=== PATIENT | female | born 1995 | race Caucasian/White ===

== ENCOUNTER 2017-01-04 17:02 | Emergency (ER) | payer SELFPAY ==
[2017-01-04] VITALS (11 sets, daily range): BP systolic 125; BP diastolic 71; PULSE 78–96; RESP 18
[~2017-01-04 17:02] MED LIST: OFLO.3%A LEFT EAR
--- NOTE | 2017-01-04 18:15 | PD ---
HPI Chief Complaint Patient wants information on care, she has no complaints Date Seen: January 04, 2017 Travel History International Travel<30 Days: No Contact w/Intl Traveler<30Days: No Known Affected Area: No History of Present Illness HPI Patient is 21-year-old white female at 27 weeks gestation presents with no complaints actually, she is wants information about try to get care and she like to know the sex of baby at a problem no pain bleeding or leakage of fluid, baby is very active, heart rate tracing is reactive for 27 weeks, patient she had ultrasound done recently the pelvis she was 27-1/2 weeks along. She had initially gone and the to have a termination of thinking she was in the first trimester [12] turns out she was 27 weeks by ultrasound patient admits to using cocaine marijuana on a regular basis she wanted to make sure the baby was ok since she uses so much cocaine and marijuana. Para: 0 : 2 History Obstetric History Obstetric History One in the past Social History Narrative Social History Admits to freely using cocaine and marijuana Alcohol Use: Yes Tobacco Use: Yes Substance Abuse: Yes Allergies-Medications (Allergen,Severity, Reaction): Coded Allergies: No Known Allergies (Verified , 10/20/14) Home Meds Active Scripts Ofloxacin (Floxin)0.3 % Soln5 Drop LEFT EAR BID 10 Days Prov:Bret Ortiz MD 10/20/14 Review of Systems General / Constitutional: No: Fever, Weight Gain, Chills, Other Eyes: No: Diploplia, Blurred Vision, Visual changes, Pain, Photophobia HENT: No: Headaches, Vertigo, Lightheadedness Cardiovascular: No: Irregular Rhythm, Chest Pain or Discomfort, Palpitations, Tachycardia, Syncope, Varicosities, Edema, Cyanosis Respiratory: No: Cough, Short of Breath, Other Gastrointestinal: No: Nausea, Vomiting, Diarrhea Genitourinary: No: Decreased Urinary Output, Oliguria Musculoskeletal: No: Limited ROM, Weakness, Cramping, Edema, Pain Skin: No Rash, No Itching, No Dryness, No Lumps, No Change in Pigmentation, No Change in Nails, No Alopecia, No Lesions Neurologic: No: Weakness, Dizziness, Syncope, Focal Abnormalities, Coordination Problem, Headache, Slurred Speech, Seizures Psychiatric: No: Depression, Suicidal Ideations, Homicidal Ideation Endocrine: No: Heat Intolerance, Cold Intolerance, Polydipsia, Polyuria, Other Physical Exam Narrative GENERAL: Well-nourished, well-developed patient. SKIN: Warm and dry. HEAD: Normocephalic and atraumatic. EYES: No scleral icterus. No injection or drainage. ENT: No nasal drainage noted. Mucous membranes pink. Airway patent. NECK: Supple, trachea midline. No JVD. CARDIOVASCULAR: Regular rate and rhythm without murmurs, gallops, or rubs. RESPIRATORY: Breath sounds equal bilaterally. No accessory muscle use. BREASTS: Bilateral exam showed no masses , no retractions, no nipple discharge. ABDOMEN/GI: Abdomen soft, non-tender, bowel sounds present, no rebound, no guarding Gravid to [-27] weeks size Fundal Height: [27-] GENITOURINARY: External Genitalia: intact and normal in appearance BUS glands: [-] Cervix: [-] Dilatation: [-Closed] Effacement: [-] Thick Station: [-3] Membranes: [intact ] Uterine Contractions: [Occasional] FHT's: Category: [1-] Baseline: [144-] Reactive: [-yes] Variability: [mod-] Decels: [0-] EXTREMITIES: No cyanosis or edema. BACK: Nontender without obvious deformity. No CVA tenderness. NEUROLOGICAL: Awake and alert. Motor and sensory grossly within normal limits. Five out of 5 muscle strength in all muscle groups. Normal speech. MDM Interpretation(s) 21-year-old white female at 27 weeks with no care who presents with no complaints just wanting to have an ultrasound and make sure the baby is okay because she uses much drugs cocaine and marijuana. Patient was going to have an but she was 12 weeks went to the clinic ultrasound said was 27 weeks . NST at this time is reactive for 27 weeks no regular contractions only an occasional one noted, she noticed the baby is very active Plan I recommend the patient not use drugs a specially cocaine while that he could damage the baby, also to the patient is given care and start with either the [facility] or the family practice clinic and urine drug screen was done and is pending at this time patient given information pamphlets on the [facility] and the phone number for family practice and the encouraged once again not to do drugs Diagnosis Diagnosis: Primary Impression: Drug use affecting in second trimester Disposition: 01 DISCHARGE HOME Condition: Stable Isidro Blackburn II, MD January 04, 2017 18:15
[2017-01-04 19:02] LABS: AMPHETAMINE, URINE NEG (NEG); BARBITURATES, URINE NEG (NEG)
[2017-01-04 19:05] LABS: COCAINE, URINE POS (NEG)
[2017-01-09 09:21] LABS: BATH SALTS (MDPV) UR NEG (NEG); ECSTASY (MDMA) UR NEG (NEG); GABAPENTIN UR NEG (NEG); HEROIN (6-ACETYLMORPHINE) UR NEG (NEG); HYDROMORPHONE U NEG (NEG); K2 SPICE UR NEG (NEG); OBMETHADONE UR NEG (NEG); OXYCODONE (PERCODAN) NEG (NEG); PHENCYCLIDINE URINE NEG (NEG)
== END 2017-01-04 19:45 | disposition home or self-care (01) ==
LOC: HOBED 17:02
DX: O99.322 Drug use complicating pregnancy, second trimester (principal); O99.332 Smoking (tobacco) complicating pregnancy, second trimester; Z3A.27 27 weeks gestation of pregnancy
CPT/HCPCS: 80307; 99283; G0481

== ENCOUNTER 2017-03-14 22:56 | Emergency (ER) | payer OTHER ==
[2017-03-14 23:23] VITALS: BP 115/78; PULSE 75
[2017-03-14 23:30] VITALS: RESP 18; TEMP 97.6
--- NOTE | 2017-03-14 23:42 | PD ---
HPI Chief Complaint bleeding Date Seen: Mar 14, 2017 Time Seen: 23:30 Travel History International Travel<30 Days: No Contact w/Intl Traveler<30Days: No Known Affected Area: No History of Present Illness HPI Pt is a 21 y/o G1 with IUP at 36.5 wks by 27 wk u/s who presents with c/o bleeding. Pt states that she had episode of dark red bleeding after intercourse around 9:30 pm. Pt denies contractions. +FM Pt has late entry to care and limited PNC, currently seeing Dr. Robledo at . Para: 0 : 1 History Past Medical History Medical History: Denies Significant Hx Past Surgical History Surgical History: No Previous Surgery Family History Family History: Negative Social History Alcohol Use: No Tobacco Use: No Substance Abuse: No (h/o cocaine and MJ use, denies use since 27 wks) Allergies-Medications (Allergen,Severity, Reaction): Coded Allergies: No Known Allergies (Verified , 10/20/14) Home Meds Active Scripts Ofloxacin (Floxin)0.3 % Soln5 Drop LEFT EAR BID 10 Days Prov:Bret Ortiz MD 10/20/14 Narrative Medication PNV Review of Systems General / Constitutional: No: Fever, Weight Gain, Weight Loss, Chills, Other Eyes: No: Diploplia, Blurred Vision, Visual changes, Pain, Photophobia, Other HENT: No: Headaches, Vertigo, Dental Difficulties, Lightheadedness, Other Cardiovascular: No: Irregular Rhythm, Chest Pain or Discomfort, Palpitations, Tachycardia, Syncope, Varicosities, Edema, Cyanosis, Other Respiratory: No: Cough, Short of Breath, Wheezing, Other Gastrointestinal: No: Nausea, Vomiting, Diarrhea, Abdominal Pain, Hematemesis, Hematochezia, Constipation, Changes in Bowel Habits, Indigestion, Loss of Appetite, Other Genitourinary: No: Urgency, Frequency, Dysuria, Nocturia, Hematuria, Decreased Urinary Output, Oliguria, Hesitancy, Dribbling, Incontinence, Pelvic Pain, Dyspareunia, Discharge, Menorrhagia, Vaginal Bleeding, Other Musculoskeletal: No: Limited ROM, Weakness, Cramping, Edema, Pain, Other Skin: No Rash, No Itching, No Dryness, No Lumps, No Change in Pigmentation, No Change in Nails, No Alopecia, No Lesions, No Breast Lumps, No Breast Tenderness , No Breast Swelling, No Other Neurologic: No: Weakness, Dizziness, Syncope, Focal Abnormalities, Coordination Problem, Headache, Slurred Speech, Seizures, Other Psychiatric: No: Anxiety, Depression, Suicidal Ideations, Disorder of Thought, Mood Disorder, Substance Abuse, Homicidal Ideation, Other Endocrine: No: Heat Intolerance, Cold Intolerance, Polydipsia, Polyuria, Other Hematologic/Lymphatic: No Easy Bruising, No Lymph Node Enlargement, No Other Physical Exam 115/78, pulse 75 Narrative GENERAL: Well-nourished, well-developed patient. SKIN: Warm and dry. HEAD: Normocephalic and atraumatic. EYES: No scleral icterus. No injection or drainage. ENT: No nasal drainage noted. Mucous membranes pink. Airway patent. NECK: Supple, trachea midline. No JVD. CARDIOVASCULAR: Regular rate and rhythm without murmurs, gallops, or rubs. RESPIRATORY: Breath sounds equal bilaterally. No accessory muscle use. ABDOMEN/GI: Abdomen soft, non-tender, bowel sounds present, no rebound, no guarding Gravid GENITOURINARY: speculum exam: small dark red clot in vagina, no active bleeding seen; membranes visible at cervical os External Genitalia: intact and normal in appearance BUS glands: [wnl] Cervix: mid Dilatation: 4 Effacement: 90 Station: -1 Presentation: [facility] Membranes: intact Uterine Contractions: q 3-4 FHT's: Category: 1 Baseline: 115 Reactive: yes Variability: mod Decels: no EXTREMITIES: No cyanosis or edema. BACK: Nontender without obvious deformity. No CVA tenderness. NEUROLOGICAL: Awake and alert. Motor and sensory grossly within normal limits. Five out of 5 muscle strength in all muscle groups. Normal speech. Data Data Vital Signs Reviewed: Yes Orders Vital Signs (Adult) .ON ADMISSION (03/14/17 23:33) ^ Labor Status (03/14/17 23:33) Urinalysis - C+S If Indicated (03/14/17 23:33) Ob/Psych Drug Screen, Urine (03/14/17 23:33) MDM Medical Record Reviewed: Yes (previous visit records reviewed) Narrative Course / MDM PT is a 21 y/o G1 with IUP at 36.5 by 27 wk u/s with bleeding after intercourse no active bleeding now; cat 1 tracing rule out active labor plan: monitor FHR and contractions; repeat cervical exam 1-2 hours no cervical change on exam. d/c home. labor/bleeding precautions. [facility] Diagnosis Diagnosis: Primary Impression: 36 weeks gestation of Additional Impression: Antepartum bleeding, third trimester Disposition: 01 DISCHARGE HOME Condition: Stable Patient Instructions: General Instructions, Early Labor Signs (ED), Movement (ED) Joey Cabello MD Mar 14, 2017 23:42
[2017-03-14 23:59] LABS: BACTERIA, URINE RARE /hpf; BLOOD, URINE MOD (NEG); COMMENT (UR) CULTURE INDICATED; CULTURE IF INDICATED CULTURE INDICATED; GLUCOSE,URINE NEG (NEG); KETONE, URINE NEG (NEG); MUCUS URINE FEW /lpf (OCC); NITRITE,URINE NEG (NEG); PH, URINE 6.5 (5.0-8.5); SQUAMOUS EPITHELIAL CELL URINE 1 /hpf (0-5); URINE COLOR YELLOW (YELLW/STRAW)
[2017-03-15 01:30] VITALS: BP 115/66; PULSE 72
[2017-03-15 01:45] VITALS: RESP 18
[2017-03-18 12:39] LABS: PHENCYCLIDINE URINE NEG (NEG)
[2017-03-18 12:40] LABS: ECSTASY (MDMA) UR NEG (NEG); HEROIN (6-ACETYLMORPHINE) UR NEG (NEG); OBMETHADONE UR NEG (NEG)
[2017-03-18 12:41] LABS: BATH SALTS (MDPV) UR NEG (NEG); GABAPENTIN UR NEG (NEG); HYDROMORPHONE U NEG (NEG); K2 SPICE UR NEG (NEG)
== END 2017-03-15 11:57 | disposition home or self-care (01) ==
LOC: HOBED 22:56
DX: O26.853 Spotting complicating pregnancy, third trimester (principal); Z3A.36 36 weeks gestation of pregnancy
CPT/HCPCS: 59025; 80307; 81001; 87086; 99284; G0481

== ENCOUNTER 2017-04-21 11:48 | Emergency (ER) | payer OTHER ==
[~2017-04-21] VITALS: Ht 162.6 cm; Wt 62.0 kg
[2017-04-21 11:49] VITALS: BP 118/74; PULSE 79; RESP 18; TEMP 97.9; O2SAT 98
--- NOTE | 2017-04-21 12:36 | PD ---
HPI Chief Complaint: Manager Department Problem/Complaint Time Seen by Provider: 12:25 Travel History International Travel<30 days: No Contact w/Intl Traveler<30days: No Traveled to known affect area: No History of Present Illness HPI 21-year-old female complains of vaginal bleeding. Patient had vaginal delivery about 4 weeks ago. Patient states that she has intermittent passing blood and blood clots since then. Patient denies any headache. Patient denies any chest pain or shortness of breath. Patient denies abdominal pain. Patient denies any pelvic pain. Patient denies any dysuria or frequency. Patient denies any fever chills. PFSH Past Medical History Medical History: Denies Significant Hx Diminished Hearing: No Immunizations Current: Yes ?: Not Past Surgical History Ear Surgery: Yes (TUBES IN EARS) Tonsillectomy: Yes Social History Alcohol Use: No Tobacco Use: Yes (5 P/DAY) Substance Use: No Allergies-Medications (Allergen,Severity, Reaction): Coded Allergies: No Known Allergies (Verified , 04/21/17) Reported Meds & Prescriptions Reported Meds & Active Scripts Active Floxin (Ofloxacin) 0.3 % Soln 5 Drop LEFT EAR BID 10 Days Review of Systems General / Constitutional: No: Fever Eyes: No: Visual changes HENT: No: Headaches Cardiovascular: No: Chest Pain or Discomfort Respiratory: No: Shortness of Breath Gastrointestinal: No: Abdominal Pain Genitourinary: Positive: Vaginal Bleeding, No: Dysuria Musculoskeletal: No: Pain Skin: No Rash Neurologic: No: Weakness Psychiatric: No: Depression Endocrine: No: Polydipsia Hematologic/Lymphatic: No: Easy Bruising Physical Exam Narrative GENERAL: Well-nourished, well-developed patient. SKIN: Focused skin assessment warm/dry. HEAD: Normocephalic. EYES: No scleral icterus. No injection or drainage. NECK: Supple, trachea midline. No JVD or lymphadenopathy. CARDIOVASCULAR: Regular rate and rhythm without murmurs, gallops, or rubs. RESPIRATORY: Breath sounds equal bilaterally. No accessory muscle use. GASTROINTESTINAL: Abdomen soft, non-tender, nondistended. MUSCULOSKELETAL: No cyanosis, or edema. BACK: Nontender without obvious deformity. No CVA tenderness. WHEAT FARMER exam: Patient has small amount of blood in the vaginal vault. The cervix is long and thick and closed. Uterus is not enlarged and nontender on palpation. No adnexal masses or tenderness. Data Data Last Documented VS Vital Signs Date Time Temp Pulse Resp B/P (MAP) Pulse Ox O2 Delivery O2 Flow Rate FiO2 04/21/17 11:49 97.9 79 18 118/74 (89) 98 Room Air MDM Medical Decision Making Medical Screen Exam Complete: Yes Emergency Medical Condition: Yes Differential Diagnosis Differential diagnosis including cervical injury, vaginal injury, dysmenorrhea, menorrhagia, retained products of conception. Narrative Course 21-year-old female with vaginal leaving. Status post vaginal delivery a month ago. Diagnosis Primary Impression: bleeding Qualified Codes: O72.1 - Other immediate hemorrhage Patient Instructions: General Instructions Additional Instructions: Continue with vitamins with iron. Encouraged by mouth fluid. Follow- up with [facility] as scheduled. Return if worse. Med/Other Pt SpecificInfo: No Meds Exist/No RX given Disposition: 01 DISCHARGE HOME Condition: Stable Elvis Diego MD Apr 21, 2017 12:36
== END 2017-04-21 12:58 | disposition home or self-care (01) ==
LOC: NEPD 11:48
DX: O72.2 Delayed and secondary postpartum hemorrhage (principal)
CPT/HCPCS: 99283

== ENCOUNTER 2017-08-03 11:04 | Emergency (ER) | payer OTHER ==
[~2017-08-03] VITALS: Ht 162.6 cm; Wt 60.6 kg
[2017-08-03 11:09] VITALS: BP 119/71; PULSE 90; RESP 17; TEMP 98.5; O2SAT 98
--- NOTE | 2017-08-03 11:39 | PD ---
HPI Chief Complaint: Cold / Flu Symptoms Time Seen by Provider: 11:32 Travel History International Travel<30 days: No Contact w/Intl Traveler<30days: No Traveled to known affect area: No History of Present Illness HPI 21 -year-old female here with clear nasal congestion and occasional cough times 4 days. She denies fever or chills. She denies chest pain or shortness of breath. Symptom severity is mild. No aggravating or alleviating factors. She has a 4-month-old child with clear nasal discharge which prompted her visit today. [facility] Past Medical History Medical History: Denies Significant Hx Diminished Hearing: No Immunizations Current: Yes ?: Not LMP: 1 WEEK AGO Past Surgical History Ear Surgery: Yes (TUBES IN EARS) Tonsillectomy: Yes Social History Alcohol Use: No Tobacco Use: Yes (5 P/DAY) Substance Use: No Allergies-Medications (Allergen,Severity, Reaction): Coded Allergies: No Known Allergies (Verified Adverse Reaction, Unknown, 08/03/17) Reported Meds & Prescriptions Reported Meds & Active Scripts Active Active Prescriptions or Reported Medications Unobtainable Review of Systems Except as stated in HPI: all other systems reviewed are Neg General / Constitutional: No: Fever HENT: Positive: Congestion Respiratory: Positive: Cough Physical Exam Narrative GENERAL: Alert and well-appearing female. SKIN: Warm and dry. HEAD: Normocephalic. EYES: No injection or drainage. NOSE: Clear discharge. No sinus tenderness. THROAT: No pharyngeal erythema or tonsillar hypertrophy or exudate. NECK: Supple, trachea midline. No JVD or lymphadenopathy. CARDIOVASCULAR: Regular rate and rhythm without murmurs, gallops, or rubs. RESPIRATORY: Breath sounds equal bilaterally. No accessory muscle use. GASTROINTESTINAL: Abdomen soft, non-tender, nondistended. Data Data Last Documented VS Vital Signs Date Time Temp Pulse Resp B/P (MAP) Pulse Ox O2 Delivery O2 Flow Rate FiO2 08/03/17 11:09 98.5 90 17 119/71 (87) 98 MDM Medical Decision Making Medical Screen Exam Complete: Yes Emergency Medical Condition: Yes Differential Diagnosis URI, influenza, pneumonia Narrative Course 21-year-old female with mild URI like symptoms. She is nontoxic appearing. Her vital signs are stable. Her physical exam is essentially benign. Symptomatic treatment discussed with patient. Diagnosis Primary Impression: URI (upper respiratory infection) Qualified Codes: J06.9 - Acute upper respiratory infection, unspecified; B97.89 - Other viral agents as the cause of diseases classified elsewhere Referrals: Primary Care Physician Additional Instructions: Take [id number] Tylenol or ibuprofen as needed for pain and fever. Rest and stay well hydrated. Take [id number] cough medicine as needed for cough Scripts Unable to Obtain Active Prescriptions or Reported Meds Disposition: 01 DISCHARGE HOME Condition: Stable Crissy Cabrera Aug 03, 2017 11:39
== END 2017-08-03 12:00 | disposition home or self-care (01) ==
LOC: PHEFT 11:04
DX: J06.9 Acute upper respiratory infection, unspecified (principal); B97.89 Other viral agents as the cause of diseases classified elsewhere; F17.210 Nicotine dependence, cigarettes, uncomplicated
CPT/HCPCS: 99282